=== PATIENT | female | born 1985 | race African-American/Black ===

== ENCOUNTER 2017-03-25 07:54 | Emergency (ER) | payer MEDICAID ==
[~2017-03-25] VITALS: Ht 172.7 cm; Wt 85.7 kg
[~2017-03-25 07:54] MED LIST: ACYCLOVIR400 MG ORAL; COLACE100 MG ORAL; IBUPROFEN600 MG ORAL; MACROBID100 MG ORAL; METAMUCIL POWD283 GM PO; ZOFRAN4 M1 ORAL; ZOVIRAX800 MG ORAL
[2017-03-25 08:20] VITALS: BP 106/74
[2017-03-25 08:20] LABS: APPEARANCE,URINE CLEAR; KETONES,URINE NEGATIVE (NEGATIVE); LEUKOCYTE ESTERASE ,URINE 1+ (NEGATIVE); NITRITE,URINE NEGATIVE (NEGATIVE); PH,URINE 6 (4.5-8.0); PROTEIN,URINE 1+ (NEGATIVE); UROBILINOGEN,URINE NORMAL MG/DL (0.0-1.0)
[2017-03-25 08:27] LABS: BACTERIA,URINE FEW /HPF; SQUAMOUS EPITHELIAL CELL,UR FEW /LPF (NONE/OCC)
[2017-03-25] MEDS ORDERED: TYLENOL EXTRA500 MG ORAL (08:42)
[2017-03-25] MEDS ORDERED: CYCLOBENZAPRINE10 MG ORAL (08:42)
[2017-03-25] MEDS ORDERED: KEFLEX500 MG ORAL (08:42)
[2017-03-25 08:45] VITALS: BP 106/74
--- NOTE | 2017-03-25 09:56 | Emergency Room Report ---
History of Present Illness General Chief Complaint: Lower Back Pain or Injury Source: Patient Present Illness HPI 32-year-old male presents ED for evaluation per states last 2 days she's been having back pain with dysuria. Pain is a 9 of 10, sharp, nonradiating. Notes dysuria. History of UTI. Patient denies fevers chills, nausea or vomiting. Denies chest pain or shortness of breath. No other aggravating relieving factors. Denies any other associated symptoms Allergies: Coded Allergies: No Known Allergies (Unverified , 03/07/13) Patient History Past Medical History: none Past Surgical History: none Pertinent Family History: none Social History: Denies: smoking, alcohol use, drug use Last Menstrual Period: 03/25/17 Now: No Immunizations: UTD Reviewed Nursing Documentation: PMH: Agreed, PSxH: Agreed Review of Systems All Other Systems: negative except mentioned in HPI Physical Exam Vital Signs Date Time Temp Pulse Resp B/P (MAP) Pulse Ox O2 Delivery O2 Flow Rate FiO2 03/25/17 07:56 98.1 67 15 107/69 98 Room Air Sp02 EP Interpretation: reviewed, normal General Appearance: no apparent distress, alert, GCS 15, non-toxic Head: normocephalic, atraumatic Eyes: bilateral eye normal inspection, bilateral eye PERRL ENT: hearing grossly normal, normal pharynx, no angioedema, normal voice Neck: full range of motion, supple/symm/no masses Respiratory: chest non-tender, lungs clear, normal breath sounds, speaking full sentences Cardiovascular #1: regular rate, rhythm, no edema Cardiovascular #2: 2+ carotid (R), 2+ carotid (L), 2+ radial (R), 2+ radial (L) , 2+ dorsalis pedis (R), 2+ dorsalis pedis (L) Gastrointestinal: normal bowel sounds, non tender, soft, non-distended, no guarding, no rebound Rectal: deferred Genitourinary: normal inspection, CVA tenderness (R), CVA tenderness (L) Musculoskeletal: gait/station normal, normal range of motion, non-tender, tender Neurologic: alert, oriented x3, responsive, motor strength/tone normal, sensory intact, speech normal Psychiatric: judgement/insight normal, memory normal, mood/affect normal, no suicidal/homicidal ideation Reflexes: 3+ bicep (R), 3+ bicep (L), 3+ tricep (R), 3+ tricep (L), 3+ knee (R) , 3+ knee (L) Skin: normal color, no rash, warm/dry, well hydrated Lymphatic: no adenopathy Medical Decision Making Diagnostic Impression: Primary Impression: UTI (urinary tract infection) Qualified Codes: N39.0 - Urinary tract infection, site not specified Additional Impression: Back pain Qualified Codes: M54.9 - Dorsalgia, unspecified ER Course Hospital Course 32-year-old female presents to ED complaining of dysuria with back pain Differential diagnoses include: UTI, cystitis, pyelonephritis Clinical course Patient placed on stretcher. After initial history and physical I ordered pain meds, UA, urine . UA + bacteria. We will treat both as back pain and treated for UTI Diagnosis - UTI, back pain Stable and discharged home with prescriptions for Rx Tylenol, Keflex, Flexeril. Instructed to followup with PMD. Return to ED if symptoms recur or worsen Labs Test 03/25/17 08:10 Urine Color Pale yellow Urine Appearance Clear Urine pH 6 (4.5-8.0) Urine Specific [place] 1.010 (1.005-1.035) Urine Protein 1+ (NEGATIVE) Urine Glucose (UA) Negative (NEGATIVE) Urine Ketones Negative (NEGATIVE) Urine Occult Blood 5+ (NEGATIVE) Urine Nitrite Negative (NEGATIVE) Urine Bilirubin Negative (NEGATIVE) Urine Urobilinogen Normal MG/DL (0.0-1.0) Urine Leukocyte Esterase 1+ (NEGATIVE) Urine RBC 5-10 /HPF (0 - 2) Urine WBC 2-4 /HPF (0 - 2) Urine Squamous Epithelial Cells Few /LPF (NONE/OCC) Urine Bacteria Few /HPF (NONE) Urine HCG, Qualitative Negative Last Vital Signs Date Time Temp Pulse Resp B/P (MAP) Pulse Ox O2 Delivery O2 Flow Rate FiO2 03/25/17 08:45 66 12 106/74 98 Room Air 03/25/17 08:20 98.0 Status: improved Disposition: HOME, SELF-CARE Condition: Stable Scripts Cyclobenzaprine Hcl* (FLEXERIL*) 10 Mg Tablet 10 MG ORAL THREE TIMES A DAY, #20 TAB Prov: CHARLES DORMAN M.D. 03/25/17 Acetaminophen* (TYLENOL EXTRA STRENGTH*) 500 Mg Tablet 500 MG ORAL Q8H Y for Prn Headache/Temp > 101, #30 TAB 0 Refills Prov: CHARLES DORMAN M.D. 03/25/17 Cephalexin* (KEFLEX*) 500 Mg Capsule 500 MG ORAL Q6H, #28 CAP 0 Refills Prov: CHARLES DORMAN M.D. 03/25/17 Patient Instructions: Back Pain, Adult CHARLES DORMAN M.D. Mar 25, 2017 09:56
== END 2017-03-25 08:45 | disposition home or self-care (01) ==
LOC: EMR 08:17
DX: N39.0 Urinary tract infection, site not specified (principal); M54.9 Dorsalgia, unspecified
CPT/HCPCS: 81003; 81025; 99284

== ENCOUNTER 2017-09-06 23:23 | Emergency (ER) | payer MEDICAID ==
[~2017-09-06] VITALS: Ht 170.2 cm; Wt 90.7 kg
[~2017-09-06 23:23] MED LIST changes: +CYCLOBENZAPRINE10 MG ORAL; +KEFLEX500 MG ORAL; +TYLENOL EXTRA500 MG ORAL
[2017-09-06 23:35] VITALS: BP 101/65
[2017-09-07] MEDS ORDERED: AMOXICILLIN500 MG ORAL (00:01)
[2017-09-07] MEDS ORDERED: PREDNISONE20 MG ORAL (00:01)
[2017-09-07] MEDS ORDERED: IBUPROFEN600 MG ORAL (00:01)
--- NOTE | 2017-09-07 00:13 | Emergency Room Report ---
History of Present Illness General Chief Complaint: Flu Like Symptoms Source: Patient, Medical Record Present Illness HPI Patient presents with complaints of sore throat Runny nose Patient is here with daughter who was sick first and now she is feeling sick Complains of mild headache Pain with swallowing 6 out of 10 Denies any vomiting or diarrhea denies any photophobia patient also had mild cough which is improving Denies any neck pain Allergies: Coded Allergies: No Known Allergies (Unverified , 03/07/13) Patient History Past Medical History: see triage record Pertinent Family History: none Last Menstrual Period: 08/24/2017 Now: No Reviewed Nursing Documentation: PMH: Agreed, PSxH: Agreed Nursing Documentation-PMH Past Medical History: No History, Except For Review of Systems All Other Systems: negative except mentioned in HPI Physical Exam Vital Signs Date Time Temp Pulse Resp B/P (MAP) Pulse Ox O2 Delivery O2 Flow Rate FiO2 09/06/17 23:34 98.5 81 16 101/65 97 Room Air 98.4 Sp02 EP Interpretation: reviewed, normal General Appearance: well appearing, no apparent distress Head: normocephalic, atraumatic Eyes: bilateral eye PERRL, bilateral eye EOMI ENT: hearing grossly normal, TMs + canals normal, uvula midline, pharyngeal erythema Neck: full range of motion, supple, no meningismus, no bony tend Respiratory: lungs clear, normal breath sounds, no rhonchi, no respiratory distress, no retraction, no accessory muscle use Cardiovascular #1: normal peripheral pulses, regular rate, rhythm, no edema, no gallop, no JVD, no murmur Gastrointestinal: normal bowel sounds, non tender, soft, no mass, no organomegaly, non-distended, no guarding, no hernia, no pulsatile mass, no rebound Genitourinary: no CVA tenderness Musculoskeletal: normal inspection Neurologic: oriented x3, responsive, programmer III-XII nml as tested, motor strength/ tone normal, sensory intact Psychiatric: mood/affect normal Skin: normal color, no rash, warm/dry, palpation normal Lymphatic: normal inspection, no adenopathy Medical Decision Making Diagnostic Impression: Primary Impression: pharyngitis ER Course Multiple differentials were considered Including but not limited to peritonsillar abscess, pharyngitis retropharyngeal abscess, simple URI Given the erythema and the symptoms given the duration patient is placed on antibiotics given a likely bacterial component and will have close outpatient follow-up , Last Vital Signs Date Time Temp Pulse Resp B/P (MAP) Pulse Ox O2 Delivery O2 Flow Rate FiO2 09/06/17 23:35 98.4 81 16 101/65 97 Room Air 98.4 Status: unchanged Disposition: HOME, SELF-CARE Condition: Stable Scripts Prednisone* (PREDNISONE*) 20 Mg Tablet 20 MG ORAL BID, #8 TAB Prov: GLADYS ELKINS D.O. 09/07/17 Ibuprofen* (MOTRIN*) 600 Mg Tablet 600 MG ORAL Q8H Y for For Pain, #30 TAB 0 Refills Prov: GLADYS ELKINS D.O. 09/07/17 Amoxicillin* (AMOXIL*) 500 Mg Capsule 500 MG ORAL THREE TIMES A DAY, #21 CAP Prov: GLADYS ELKINS D.O. 09/07/17 Patient Instructions: Pharyngitis, [id number] Additional Instructions: Patient is provided with the discharge instructions notified to follow up with primary doctor in the next 2-3 days otherwise return to the er with any worsening symptoms. Please note that this report is being documented using [employer] technology. This can lead to erroneous entry secondary to incorrect interpretation by the dictating instrument. GLADYS ELKINS D.O. Sep 07, 2017 00:13
[2017-09-07 00:14] VITALS: BP 101/65
== END 2017-09-07 00:15 | disposition home or self-care (01) ==
LOC: EMR 23:47
DX: J06.9 Acute upper respiratory infection, unspecified (principal)
CPT/HCPCS: 99284

== ENCOUNTER 2017-09-12 09:34 | Emergency (ER) | payer MEDICAID ==
[~2017-09-12] VITALS: Ht 170.2 cm; Wt 90.7 kg
[~2017-09-12 09:34] MED LIST changes: +AMOXICILLIN500 MG ORAL; +PREDNISONE20 MG ORAL
[2017-09-12 10:33] LABS: APPEARANCE,URINE CLEAR; BILIRUBIN, URINE NEGATIVE (NEGATIVE); COLOR,URINE PALE YELLOW; GLUCOSE, URINE (UA) NEGATIVE (NEGATIVE); KETONES,URINE NEGATIVE (NEGATIVE); LEUKOCYTE ESTERASE ,URINE 1+ (NEGATIVE); NITRITE,URINE NEGATIVE (NEGATIVE); PH,URINE 6 (4.5-8.0); PROTEIN,URINE NEGATIVE (NEGATIVE); UROBILINOGEN,URINE NORMAL MG/DL (0.0-1.0)
--- NOTE | 2017-09-12 10:58 | Emergency Room Report ---
History of Present Illness General Chief Complaint: Diarrhea Source: Patient Present Illness HPI Patient being treated for pharyngitis with amox and prednisone for several days (seen 09/06). Now with diarrhea. Watery and brown. No blood. Minimal abdominal cramping. No fever at this time. Throat is improved but still present. No cough. Able to tolerate PO. No dysuria. LNMP was normal. No travel, unusual foods. No one else is sick around her. Allergies: Coded Allergies: No Known Allergies (Unverified , 03/07/13) Patient History Past Medical History: see triage record, old chart reviewed Social History: Denies: smoking Social History Narrative not working Last Menstrual Period: 08/24/17 Now: No Reviewed Nursing Documentation: PMH: Agreed, PSxH: Agreed Nursing Documentation-PMH Past Medical History: No History, Except For Review of Systems All Other Systems: negative except mentioned in HPI Physical Exam Vital Signs Date Time Temp Pulse Resp B/P (MAP) Pulse Ox O2 Delivery O2 Flow Rate FiO2 09/12/17 09:40 98.5 85 18 114/63 97 Room Air 98.4 Sp02 EP Interpretation: reviewed, normal General Appearance: well appearing, no apparent distress, GCS 15 Head: normocephalic Eyes: bilateral eye normal inspection, bilateral eye PERRL ENT: moist mucus membranes, pharyngeal erythema Neck: supple Respiratory: lungs clear, normal breath sounds Cardiovascular #1: regular rate, rhythm Cardiovascular #2: 2+ radial (R) Gastrointestinal: normal inspection, normal bowel sounds, non tender, no mass, non-distended Musculoskeletal: back normal, gait/station normal, normal range of motion Neurologic: alert, oriented x3, grossly normal Psychiatric: mood/affect normal Skin: normal inspection, warm/dry Medical Decision Making Diagnostic Impression: Primary Impression: Diarrhea Qualified Codes: R19.7 - Diarrhea, unspecified Additional Impression: Pharyngitis Qualified Codes: J02.9 - Acute pharyngitis, unspecified ER Course Patient with diarrhea and cramps several days into amox course with pharyngitis. DDx: C difficile, amox reaction, viral syndrome, food poisoning amongst others. Evaluation with UA, preg and C difficile test. Treatment with tylenol. Suspect C difficile colitis. Patient started on Flagyl. Advised to stop amox. Denies abdominal pain at this time (only throat pain). Patient stable for outpatient observation and treatment. Laboratory Tests Test 09/12/17 09:14 Urine Color Pale yellow Urine Appearance Clear Urine pH 6 (4.5-8.0) Urine Specific [place] 1.010 (1.005-1.035) Urine Protein Negative (NEGATIVE) Urine Glucose (UA) Negative (NEGATIVE) Urine Ketones Negative (NEGATIVE) Urine Occult Blood Negative (NEGATIVE) Urine Nitrite Negative (NEGATIVE) Urine Bilirubin Negative (NEGATIVE) Urine Urobilinogen Normal MG/DL (0.0-1.0) Urine Leukocyte Esterase 1+ (NEGATIVE) H Urine RBC 0-2 /HPF (0 - 2) Urine WBC 2-4 /HPF (0 - 2) Urine Squamous Epithelial Cells Moderate /LPF (NONE/OCC) H Urine Bacteria Few /HPF (NONE) Urine HCG, Qualitative Negative Last Vital Signs Date Time Temp Pulse Resp B/P (MAP) Pulse Ox O2 Delivery O2 Flow Rate FiO2 09/12/17 11:11 98.5 80 18 129/61 100 Room Air 98.5 Status: improved Disposition: HOME, SELF-CARE Condition: Improved Scripts Metronidazole* (FLAGYL*) 500 Mg Tablet 500 MG ORAL TID, #21 TAB Prov: Juwan Lopes M.D. 09/12/17 Referrals: NON PHYSICIAN (PCP) Juwan Lopes M.D. Sep 12, 2017 10:57
[2017-09-12] MEDS ORDERED: METRONIDAZOLE500 MG ORAL (11:00)
[2017-09-12] MEDS ORDERED: metroNIDAZOLE 500mg tab ORAL ONE (11:00)
[2017-09-12 11:10] VITALS: BP 129/61
[2017-09-12 11:11] VITALS: BP 129/61
== END 2017-09-12 11:13 | disposition home or self-care (01) ==
LOC: EMR 10:18
DX: R19.7 Diarrhea, unspecified (principal); J02.9 Acute pharyngitis, unspecified
CPT/HCPCS: 81003; 81025; 87324; 99283